=== PATIENT | female | born 1965 | race Caucasian/White ===

== ENCOUNTER → 2023-11-10 | Outpatient (REF) | payer OTHER | LOC: US 08:27 | PROVIDERS: ATTEND Family Medicine | DX: M79.18 Myalgia, other site (principal); R22.9 Localized swelling, mass and lump, unspecified; S30.0XXA Contusion of lower back and pelvis, initial encounter; S39.92XA Unspecified injury of lower back, initial encounter; W19.XXXA Unspecified fall, initial encounter; Z02.6 Encounter for examination for insurance purposes | CPT/HCPCS: 76882 ==